=== PATIENT | female | born 1995 | race Caucasian/White ===

== ENCOUNTER 2017-07-12 01:14 | Emergency (ER) | payer MEDICAID ==
[~2017-07-12] VITALS: Ht 157.5 cm; Wt 62.0 kg
[~2017-07-12 01:14] MED LIST: CLIN1CAP6 PO; HYDROMET
[2017-07-12 01:16] VITALS: BP 118/71; PULSE 68; RESP 16; TEMP 97.8; O2SAT 100
[2017-07-12] MEDS ORDERED: IBUPROFEN 800 MG TAB PO ONE (03:00)
[2017-07-12] MEDS ORDERED: SULFAMETHOXAZOLE-TRIMETHOPRIM DS 800-160 MG TAB PO ONE (03:00)
[2017-07-12] MEDS ORDERED: IBUP800T23 PO (03:25)
[2017-07-12] MEDS ORDERED: BACT800T5 PO (03:25)
--- NOTE | 2017-07-12 03:26 | PD ---
HPI . Head pain Chief Complaint: Dizziness Time Seen by Provider: 02:42 Travel History International Travel<30 days: No Contact w/Intl Traveler<30days: No Traveled to known affect area: No History of Present Illness HPI This patient presents with the chief complaint to me of a painful bump on her head. She states that she just awakened with it a. There is been no injury. She states that the bump is very sore. She rates the pain 5/10. She told the triage nurse that she was here for dizziness and blurred vision. 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) Social History Alcohol Use: No Tobacco Use: No Substance Use: No Allergies-Medications (Allergen,Severity, Reaction): Coded Allergies: blue dye (Unverified Allergy, Severe, rash, 07/12/17) red dye (Unverified Allergy, Severe, rash, 07/12/17) azithromycin (Unverified Adverse Reaction, Mild, abd pains, 07/12/17) Reported Meds & Prescriptions Reported Meds & Active Scripts Active Clindamycin Hcl (Clindamycin HCl) 300 Mg Cap 300 Mg PO TID 10 Days Reported [Hydromet] Review of Systems Except as stated in HPI: all other systems reviewed are Neg General / Constitutional: No: Fever, Chills Eyes: Positive: Blurred Vision HENT: Positive: Headaches Neurologic: Positive: Dizziness Physical Exam Narrative GENERAL: Histrionic young lady in no acute distress. SKIN: warm/dry. She has a small papular lesion on the left side of her scalp which is tender to palpation. There is no drainage. HEAD: Normocephalic. Atraumatic. EYES: Pupils equal and round. No scleral icterus. No injection or drainage. ENT: No nasal bleeding or discharge. Mucous membranes pink and moist. NECK: Trachea midline. Full range of motion without pain.. CARDIOVASCULAR: Regular rate and rhythm. RESPIRATORY: No accessory muscle use. MUSCULOSKELETAL: No obvious deformities. NEUROLOGICAL: Awake and alert. No obvious cranial nerve deficits. Motor grossly within normal limits. Normal speech. PSYCHIATRIC: Appropriate mood and affect; insight and judgment normal. Data Data Last Documented VS Vital Signs Date Time Temp Pulse Resp B/P (MAP) Pulse Ox O2 Delivery O2 Flow Rate FiO2 07/12/17 03:12 98 Room Air 07/12/17 01:16 97.8 68 16 118/71 (87) Orders Orders Sulfamet-Trimeth Ds 800-160 Mg (Bactrim (07/12/17 03:00) Ibuprofen (Motrin) (07/12/17 03:00) MDM Medical Decision Making Medical Screen Exam Complete: Yes Emergency Medical Condition: Yes Differential Diagnosis Differential diagnosis includes but is not limited to folliculitis, abscess Narrative Course This patient presents with a painful bump her head. It looks like folliculitis. She will be discharged on Bactrim and Motrin. Diagnosis Primary Impression: Folliculitis Patient Instructions: Folliculitis (DC), General Instructions Additional Instructions: Warm compresses to the area. See your primary care provider for any further problems. Med/Other Pt SpecificInfo: Prescription(s) given Scripts Ibuprofen (Ibuprofen) 800 Mg Tab 800 MG PO Q8H Y for Pain/Inflammation, #60 TAB 0 Refills Prov: Soledad Brito MD 07/12/17 Sulfamethoxazole-Trimethoprim (Bactrim DS) 800-160 Mg Tab 1 TAB PO BID for Infection, #20 TAB 0 Refills Prov: Soledad Brito MD 07/12/17 Disposition: 01 DISCHARGE HOME Condition: Stable Soledad Brito MD Jul 12, 2017 03:26
[2017-07-12 03:30] VITALS: BP 120/74
== END 2017-07-12 03:36 | disposition home or self-care (01) ==
LOC: NEPE 01:14
DX: L73.9 Follicular disorder, unspecified (principal)
CPT/HCPCS: 99283